=== PATIENT | female | born 1955 | race Caucasian/White ===

== ENCOUNTER 2017-08-17 14:02 | Emergency (ER) | payer OTHER ==
[~2017-08-17] VITALS: Ht 172.7 cm; Wt 95.0 kg
[~2017-08-17 14:02] MED LIST: CALCIUM + D OR; DIOVAN HCT160 MG/25 PO; HYDROCO/APAP1 T12 OR; SYNTHROID75 MCG PO; ZYRTEC-D AL1 OR
[2017-08-17] MEDS ORDERED: LOSARTAN/HCT1 TA2 PO (14:41)
[2017-08-17] MEDS ORDERED: ALPRAZOLAM0.25 MG PO (14:44)
[2017-08-17] MEDS ORDERED: BREO ELLIPTA 101 INH NB (14:47)
[2017-08-17] MEDS ORDERED: OMEPRAZOLE10 MG PO (14:48)
[2017-08-17] MEDS ORDERED: [UNRECOGNIZED DRUG - REMARK] (14:51)
[2017-08-17] MEDS ORDERED: TESSALON PER100 MG PO (15:00)
[2017-08-17] MEDS ORDERED: PREDNISONE50 MG PO (15:00)
[2017-08-17 15:35] VITALS: BP 134/76
== END 2017-08-17 15:35 | disposition home or self-care (01) | DRG 203 ==
LOC: ED 14:02
DX: J45.901 Unspecified asthma with (acute) exacerbation (principal); R05 Cough; R09.81 Nasal congestion

== ENCOUNTER 2019-10-28 | Day surgery (SDC) | payer MEDICARE ==
[~2019-10-28] MED LIST changes: +ALLERGY NA50 MCG/ACT NAB; +ALPRAZOLAM0.25 MG PO; +AZELASTINE0.1 %; +BREO ELLIPTA 101 INH NB; +HYDROCHLOROT25 MG PO; +KLOR-CON M2020 MEQ PO; +LOSARTAN/HCT1 TA2 PO; +OMEPRAZOLE10 MG PO; +PAROXETINE10 M1 PO; +PAXIL40 MG PO; +PREDNISONE50 MG PO; +PROAIR HFA IN; +SPIRIVA RE1.25 MCG/A PO; +TESSALON PER100 MG PO; +VALSARTAN160 MG PO; +[UNRECOGNIZED DRUG - REMARK]
== END 2019-10-28 11:54 | disposition home or self-care (01) ==
PROC: 0DJD8ZZ Inspection of Lower Intestinal Tract, Via Natural or Artificial Opening Endoscopic (ICD-10-PCS; principal; 2019-10-28)
DX: Z12.11 Encounter for screening for malignant neoplasm of colon (principal); I10 Essential (primary) hypertension